=== PATIENT | female | born 1940 | race American Indian/Alaskan Native ===

== ENCOUNTER 2017-11-05 17:27 | Emergency (ER) | payer BC, MEDICARE ==
[2017-11-05 17:27] VITALS: BMI 29.7
[2017-11-05 17:39] VITALS: TEMP 98
--- NOTE | 2017-11-05 18:58 | ED PDOC ---
Arrival/HPI - General Chief Complaint: Lower Extremity Problem/Injury Time Seen by Provider: 11/05/17 18:40 Historian: Patient - History of Present Illness Narrative History of Present Illness (Text): 11/05/17 18:51 77yo female with PMHx of hypertension and Diabetes who present with complaint of b/l leg edema x 2weeks. Patient states she have had the edema for few weeks and it usually improve after elevating her legs up. States she noticed the right leg is not resolving, saw her PMD today and was referred to ED for US. She states she had a normal blood work last week. Denies pain to her b/l LE. Denies redness, warmth trauma, chest pain, SOB, diaphoresis, calf pain, nausea, vomiting, any other complaint. Past Medical History - Provider Review Nursing Documentation Reviewed: Yes - Cardiac Hx Cardiac Disorders: Yes Hx Hypertension: Yes - Pulmonary Hx Respiratory Disorders: No - Neurological Hx Neurological Disorder: No - Renal Hx Renal Disorder: No - Endocrine/Metabolic Hx Endocrine Disorders: Yes Hx Diabetes Mellitus Type 2: Yes - Hematological/Oncological Hx Blood Disorders: No - Integumentary Hx Dermatological Disorder: No - Musculoskeletal/Rheumatological Hx Musculoskeletal Disorders: Yes Hx Arthritis: Yes - Gastrointestinal Hx Gastrointestinal Disorders: No - Genitourinary/Gynecological Hx Genitourinary Disorders: Yes Other/Comment: ENDOMETRIOSIS - Psychiatric Hx Psychophysiologic Disorder: No Hx Substance Use: No - Surgical History Hx Hysterectomy: Yes - Anesthesia Hx Anesthesia Reactions: No Hx Malignant Hyperthermia: No - Suicidal Assessment Feels Threatened In Home Enviroment: No Family/Social History - Physician Review Nursing Documentation Reviewed: Yes Family/Social History: Unknown Family HX Smoking Status: Former Smoker Hx Alcohol Use: No Hx Substance Use: No Allergies/Home Meds Allergies/Adverse Reactions: Allergies No Known Allergies Allergy (Verified 11/05/17 17:31) Home Medications: Home Meds Medication Instructions Recorded Confirmed Felodipine [Plendil] 5 mg PO DAILY 08/01/16 11/05/17 Losartan/Hydrochlorothiazide 1 tab PO DAILY 08/01/16 11/05/17 [Hyzaar 100-25 Tablet] Nadolol [Corgard] 40 mg PO DAILY 08/01/16 11/05/17 Triamterene/Hydrochlorothiazid 35.5 mg PO DAILY 08/01/16 11/05/17 [Triamterene-Hctz 37.5-25 mg Cp] metFORMIN [glucOPHAGE] 500 mg PO BID 08/01/16 11/05/17 Review of Systems - Physician Review All systems were reviewed & negative as marked: Yes - Review of Systems Constitutional: Normal Eyes: Normal ENT: Normal Respiratory: Normal Cardiovascular: Edema. absent: Palpitations, Calf Pain, BUENROSTRO Gastrointestinal: Normal Genitourinary Female: Normal Musculoskeletal: Normal Skin: Normal Neurological: Normal Endocrine: Normal Hemo/Lymphatic: Normal Psychiatric: Normal Physical Exam Vital Signs Reviewed: Yes Vital Signs Temp Pulse Resp BP Pulse Ox 11/05/17 18:58 89 18 116/78 97 11/05/17 17:31 98.0 F 101 H 16 114/77 98 Temperature: Afebrile Blood Pressure: Normal Pulse: Regular Respiratory Rate: Normal Appearance: Positive for: Well-Appearing, Non-Toxic, Comfortable Pain Distress: None Mental Status: Positive for: Alert and Oriented X 3 - Systems Exam Head: Present: Atraumatic, Normocephalic Pupils: Present: PERRL Extroacular Muscles: Present: EOMI Conjunctiva: Present: Normal Mouth: Present: Moist Mucous Membranes Neck: Present: Normal Range of Motion Respiratory/Chest: Present: Clear to Auscultation, Good Air Exchange. No: Respiratory Distress, Accessory Muscle Use Cardiovascular: Present: Regular Rate and Rhythm, Normal S1, S2. No: Murmurs Abdomen: Present: Normal Bowel Sounds. No: Tenderness, Distention, Peritoneal Signs Back: Present: Normal Inspection Upper Extremity: Present: Normal Inspection. No: Cyanosis, Edema Lower Extremity: Present: Edema (3+ pitting edema on right leg and 2+ on the left), NORMAL PULSES. No: CALF TENDERNESS, Pushpa's Sign, Tenderness, Erythema, Temperature Abnormalties Neurological: Present: GCS=15, CN II-XII Intact, Speech Normal Skin: Present: Warm, Dry, Normal Color. No: Rashes Psychiatric: Present: Alert, Oriented x 3, Normal Insight, Normal Concentration Medical Decision Making ED Course and Treatment: 11/05/17 19:23 PT in ED for stated history. She declined lab work states she had a normal lab work last week. Per US tech prelimnary report was negative for US. Pt is ambulatory. She have no pain in ED. Pt was advised to wear compression stockings and keep leg elevated. Referred to her PMD - RAD Interpretation Radiology Orders: 11/05/17 18:45 DUPLEX LOWER EXTRM VEIN BILAT [US] Stat Disposition/Present on Arrival - Present on Arrival Any Indicators Present on Arrival: No History of DVT/PE: No History of Uncontrolled Diabetes: Yes Urinary Catheter: No History of Decub. Ulcer: No History Surgical Site Infection Following: None - Disposition Have Diagnosis and Disposition been Completed?: Yes Diagnosis: Edema Disposition: HOME/ ROUTINE Disposition Time: 19:30 Patient Plan: Discharge Condition: STABLE Discharge Instructions (ExitCare): Dependent Edema (DC) Additional Instructions: Follow up with your doctor Wear compression stockings and keep leg elevated Return to ED for any new or worsening symptoms Referrals: Eliazar Sterling MD [Primary Care Provider] - Follow up with primary Forms: [employer] (Maori)
[2017-11-05 19:49] VITALS: BP 117/87; PULSE 82; RESP 16; O2SAT 99
--- NOTE | 2017-11-06 09:57 | US ---
HISTORY: Leg pain and swelling. Evaluate for DVT PHYSICIAN(S): Kaiser Yung MD. TECHNIQUE: Duplex sonography and color-flow Doppler with graded compression were used to evaluate the deep venous systems of both lower extremities. The exam is somewhat limited by edema. FINDINGS: The visualized deep venous systems of both lower extremities are sonographically normal and compressible. Normal wave forms and augmentation are seen. There is no sonographic evidence for deep venous thrombosis in the visualized segments of both lower extremities. IMPRESSION: No sonographic evidence for deep venous thrombosis in the visualized segments of both lower extremities.
== END 2017-11-05 19:39 | disposition home or self-care (01) ==
LOC: ED 17:27
DX: R60.9 Edema, unspecified (principal); I10 Essential (primary) hypertension; Z87.891 Personal history of nicotine dependence

== ENCOUNTER 2018-10-22 11:24 | Outpatient (CLI) | payer MEDICARE | END 2018-10-22 11:25 | disposition home or self-care (01) | LOC: RAD 11:24 ==

== ENCOUNTER 2018-10-24 12:18 | Day surgery (SDC) | payer MEDICARE ==
[2018-10-24 12:59] LABS: BASO # 0.01 K/mm3 (0.0-2.0); BASO % 0.2 % (0.0-3.0); EOS % 0.4 % (1.5-5.0); HEMOGLOBIN 12.4 g/dL (12.0-16.0); LYMPH # 1.1 (1.2-3.4); LYMPH % 21.3 % (22.0-35.0); MEAN CELL VOLUME 93.7 fl (80.0-105.0); MEAN CORPUSCULAR HEMOGLOBIN 31.4 pg (25.0-35.0); MEAN CORPUSCULAR HGB CONC 33.5 g/dl (31.0-37.0); MEAN PLATELET VOLUME 8.4 fl (7.0-11.0); MONO # 0.4 (0.1-0.6); MONO % 8.2 % (1.0-6.0); RBC 3.95 10^6/uL (3.5-6.1); RED CELL DISTRIBUTION WIDTH 15.2 % (11.5-14.5); WHITE BLOOD COUNT 5.3 10^3/uL (4.5-11.0)
[2018-10-24 13:09] LABS: BLOOD UREA NITROGEN 19 mg/dL (7-21); CALCIUM 8.5 mg/dL (8.4-10.5); GFR NON-AFRICAN AMERICAN 54
[2018-10-24 13:11] LABS: INR 1.24
[2018-10-24 13:12] LABS: PARTIAL THROMBOPLASTIN TIME 29.4 Seconds (26.9-38.3)
[2018-10-24] MEDS ORDERED: Lidocaine 1% Inj (20ml) ONE (16:42)
[2018-10-24] MEDS ORDERED: Midazolam 2 MG/2 ML VIAL ONE (16:42)
[2018-10-24 16:47] VITALS: BMI 26.6
[2018-10-24] MEDS ORDERED: Midazolam 2 MG/2 ML VIAL IVP ONE (17:05)
[2018-10-24] MEDS ORDERED: Sodium Chloride 0.45% 1,000 ML IV SCH (17:15)
[2018-10-24] MEDS ORDERED: Oxycodone/Acetaminophen 5/325 mg Tab PO PRN (17:15)
[2018-10-24 17:40] VITALS: O2SAT 99
[2018-10-24 18:21] VITALS: PULSE 73; RESP 20; TEMP 97.6
[2018-10-24 18:44] VITALS: BP 105/63
--- NOTE | 2018-10-24 19:28 | CT ---
PROCEDURE: CT guided omental biopsy. HISTORY: Ovarian carcinoma. Needs omental biopsy for additional tumor evaluation. PHYSICIAN(S): Kaiser Yung MD. TECHNIQUE: The relative risks and indications of the procedure were explained to the patient and consent obtained. The patient was placed supine on the CT scanner and preliminary images through the upper abdomen obtained. Conscious sedation and monitoring were provided throughout the procedure by a nurse. A 4 cm omental mass is noted just below the spleen between the stomach and left colon. A left anterior approach was selected and the area prepped and draped in the usual sterile fashion. 1% Xylocaine was used to anesthetize the skin and soft tissues. A 17-gauge guiding needle was advanced into the 4 cm omental mass. Its position was confirmed with CT. Using coaxial technique, multiple core biopsies were obtained. The postprocedure images show no evidence of significant hemorrhage. IMPRESSION: 1. CT-guided omental biopsy as described above.
== END 2018-10-24 19:00 | disposition home or self-care (01) ==
LOC: SDS 12:18
PROVIDERS: ATTEND Radiology Vascular & Interventional Radiology
DX: C78.6 Secondary malignant neoplasm of retroperitoneum and peritoneum (principal); C56.9 Malignant neoplasm of unspecified ovary; E11.9 Type 2 diabetes mellitus without complications; I10 Essential (primary) hypertension
CPT/HCPCS: 36415; 49180; 77012; 80048; 85025; 85610; 85730; 88305; 99152; J2250; J2405; J3010; J7030

== ENCOUNTER 2018-11-08 17:47 | Emergency (ER) | payer MEDICARE ==
[2018-11-08 17:48] VITALS: BMI 26.6
--- NOTE | 2018-11-08 19:22 | ED PDOC ---
Arrival/HPI - General Chief Complaint: GI Problem Historian: Patient, Family - History of Present Illness Narrative History of Present Illness (Text): 11/08/18 19:12 78 year old female, whose past medical history includes hypertension, Diabetes, ascites, uterine cancer, presents to the emergency department accompanied by family for removal of ascites. The patient reports her last paracentesis was 3-4 weeks ago removing 3-4L done by Dr. Kaiser Yung. Patient reports she starts chemotherapy next week. She also reports she has not taken her lasix for the past week due to being unsure of her treatment regime. She reports shortness of breath, but denies any fever, chills, chest pain, nausea, vomiting, diarrhea, bladder fullness, urinary symptoms, back pain, neck pain, headache, dizziness, or any other complaints. PMD: Dr. Sterling Oncologist: Dr. Franco Symptom Onset: Gradual Symptom Course: Unchanged Activities at Onset: Light Context: Home Past Medical History - Provider Review Nursing Documentation Reviewed: Yes - Travel History Have you recently traveled outside [place] w/in the past 3 mons?: No - Cardiac Hx Pacemaker: No - Pulmonary Hx Respiratory Disorders: No - Neurological Hx Paralysis: No - Renal Hx Renal Disorder: No - Endocrine/Metabolic Hx Endocrine Disorders: Yes Hx Diabetes Mellitus Type 2: Yes - Hematological/Oncological Hx Blood Transfusions: No Hx Cancer: Yes (Endometrial cancer) - Integumentary Hx Dermatological Disorder: No - Musculoskeletal/Rheumatological Hx Musculoskeletal Disorders: Yes - Gastrointestinal Hx Gastrointestinal Disorders: No - Genitourinary/Gynecological Hx Genitourinary Disorders: Yes Other/Comment: ENDOMETRIOSIS - Psychiatric Hx Emotional Abuse: No Hx Physical Abuse: No Hx Substance Use: No - Surgical History Hx Hysterectomy: Yes - Anesthesia Hx Anesthesia Reactions: No Hx Malignant Hyperthermia: No - Suicidal Assessment Feels Threatened In Home Enviroment: No Family/Social History - Physician Review Nursing Documentation Reviewed: Yes Family/Social History: No Known Family HX Smoking Status: Former Smoker Hx Alcohol Use: No Hx Substance Use: No Allergies/Home Meds Allergies/Adverse Reactions: Allergies No Known Allergies Allergy (Verified 11/10/18 14:43) Home Medications: Home Meds Medication Instructions Recorded Confirmed Felodipine [Plendil] 5 mg PO DAILY 08/01/16 11/10/18 Losartan/Hydrochlorothiazide 1 tab PO DAILY 08/01/16 11/10/18 [Hyzaar 100-25 Tablet] Nadolol [Corgard] 40 mg PO DAILY 08/01/16 11/10/18 Triamterene/Hydrochlorothiazid 35.5 mg PO DAILY 08/01/16 11/10/18 [Triamterene-Hctz 37.5-25 mg Cp] metFORMIN [glucOPHAGE] 500 mg PO BID 08/01/16 11/10/18 Calcium Carbonate [Calcium] 500 mg PO DAILY 10/23/18 11/10/18 Magnesium [Magnesium Elemental] 30 mg PO DAILY 10/23/18 11/10/18 Mv-Min/Folic/Vit K/Lycop/Coq10 1 each PO DAILY 10/23/18 11/10/18 [Daily Multivitamin Capsule] [place]-3 Fatty Acids/Fish Oil 1 tab DAILY 10/23/18 11/10/18 [[place] 3 Fish Oil Softgel] Omeprazole Magnesium [Prilosec Otc] 20 mg PO DAILY 10/23/18 11/10/18 Vitamin B Complex [Vitamin B50 1 cap PO DAILY 10/23/18 11/10/18 Super Complex] Review of Systems - Physician Review All systems were reviewed & negative as marked: Yes - Review of Systems Constitutional: absent: Fevers, Other (chills) Respiratory: SOB Cardiovascular: absent: Chest Pain Gastrointestinal: Other (abdominal fluid ). absent: Diarrhea, Nausea, Vomiting Genitourinary Female: absent: Dysuria, Frequency, Hematuria Musculoskeletal: absent: Back Pain, Neck Pain Neurological: absent: Headache, Dizziness Physical Exam Vital Signs Reviewed: Yes Vital Signs Temp Pulse Resp BP Pulse Ox 11/08/18 18:11 97.4 F L 83 18 123/77 98 Temperature: Afebrile Blood Pressure: Normal Pulse: Regular Respiratory Rate: Normal Appearance: Positive for: Well-Appearing, Non-Toxic, Comfortable Pain Distress: None Mental Status: Positive for: Alert and Oriented X 3 - Systems Exam Mouth: Present: Dry Respiratory/Chest: Present: Decreased Breath Sounds (diminished breath sounds bi lterally ). No: Wheezes, Rales, Rhonchi Cardiovascular: Present: Regular Rate and Rhythm, Normal S1, S2. No: Murmurs Abdomen: Present: Distention, Other (Positive fluid shift, Ascites present. ) Lower Extremity: Present: Edema (+3 pitting edema bilaterally ) Neurological: Present: GCS=15, CN II-XII Intact, Speech Normal Psychiatric: Present: Alert, Oriented x 3, Normal Insight, Normal Concentration Medical Decision Making ED Course and Treatment: 11/08/18 19:28 Impression: 78 year old female presents for evaluation of abdominal fluid secondary to her ascites associated with shortness of breath. Differential Diagnosis included but are not limited to: -Ascites Plan: -- Labs --Lasix -- CXR -- IV Fluids -- Reassess and disposition Prior Visits: Notes and results from previous visits were reviewed. Progress Notes: 11/08/18 20:[address] Gerard(interventional radiology) who has not been responsive to calls. Patient understands she most likely will have to stay in the hospital and have paracentesis performed by IR in the morning. Labs pending. CXR shows cardiomegaly with vascular congestion 11/08/18 21:[address] Ferguson(covering for Dr. Sterling) who states patient most likely will not have procedure performed until Saturday. Shared decision making with patient and daughter with patient stating she would like to sign out AMA and return on Saturday. She understands she will have to undergo the entire triage process and dispositioning in the ED again and understands. Consent paperwork signed. She understands the risks of leaving prior to completion of medical treatment and displays sound judgment and insight into her condition. She is stable for discharge. - Lab Interpretations Lab Results: 11/08/18 19:45 11/08/18 19:45 Lab Results 11/08/18 19:45: Sodium 138, Potassium 3.6, Chloride 103, Carbon Dioxide 23, Anion Gap 16, BUN 33 H, Creatinine 1.2, Est GFR ( Amer) 53, Est GFR (Non- Af Amer) 44, Random Glucose 112 H, Calcium 8.8, Magnesium 1.3 L, Total Bilirubin 1.0, AST 28, ALT 7, Alkaline Phosphatase 60, NT-Pro-B Natriuret Pep 489 H, Total Protein 7.2, Albumin 3.5, Globulin 3.7, Albumin/Globulin Ratio 0.9 L 11/08/18 19:45: PT 15.0 H, INR 1.35, APTT 28.1 11/08/18 19:45: WBC 8.6 D, RBC 3.82, Hgb 11.8 L, Hct 35.5 L, MCV 92.9, MCH 30.9, MCHC 33.2, RDW 16.3 H, Plt Count 228, MPV 8.8, Neut % (Auto) 83.9 H, Lymph % (Auto) 8.9 L, [place] % (Auto) 7.2 H, Eos % (Auto) 0.0 L, Baso % (Auto) 0.0, Lymph # (Auto) 0.8 L, [place] # (Auto) 0.6, Eos # (Auto) 0.0, Baso # (Auto) 0.00, Absolute Neuts (auto) 7.20 H I have reviewed the lab results: Yes - RAD Interpretation Radiology Orders: 11/08/18 18:53 CHEST PORTABLE [RAD] Stat Washer Repairman: Radiologist - Medication Orders Current Medication Orders: 11/08/18 20:38 Sodium Chloride (Sodium Chloride 0.9%) 1,000 mls @ 100 mls/hr IV .Q10H RUTH Last Admin: 11/08/18 19:46 Dose: 100 mls/hr eMAR Start Stop Document 11/08/18 19:46 RD (Rec: 11/08/18 19:46 RD [id number]) Intravenous Solution Start Date 11/08/18 Start Time 19:46 - Scribe Statement The provider has reviewed the documentation as recorded by the Khadra Perales Provider Scribe Attestation: All medical record entries made by the Scribe were at my direction and personally dictated by me. I have reviewed the chart and agree that the record accurately reflects my personal performance of the history, physical exam, [facility] decision making, and the department course for this patient. I have also personally directed, reviewed, and agree with the discharge instructions and disposition. Disposition/Present on Arrival - Present on Arrival Any Indicators Present on Arrival: Yes History of DVT/PE: No History of Uncontrolled Diabetes: Yes Urinary Catheter: No History of Decub. Ulcer: No History Surgical Site Infection Following: None - Disposition Have Diagnosis and Disposition been Completed?: Yes Diagnosis: Dyspnea, Ascites Disposition: AGAINST MEDICAL ADVICE Disposition Time: 22:30 Condition: FAIR Referrals: Eliazar Sterling MD [Primary Care Provider] - Follow up with primary Forms: [employer] (Turkish)
[2018-11-08] MEDS ORDERED: Sodium Chloride 0.9% 1,000 ML IV SCH (19:30)
[2018-11-08 19:56] LABS: HEMOGLOBIN 11.8 g/dL (12.0-16.0); LYMPH # 0.8 (1.2-3.4); LYMPH % 8.9 % (22.0-35.0); MEAN CELL VOLUME 92.9 fl (80.0-105.0); MEAN CORPUSCULAR HEMOGLOBIN 30.9 pg (25.0-35.0); MEAN CORPUSCULAR HGB CONC 33.2 g/dl (31.0-37.0); MEAN PLATELET VOLUME 8.8 fl (7.0-11.0); MONO # 0.6 (0.1-0.6); MONO % 7.2 % (1.0-6.0); RBC 3.82 10^6/uL (3.5-6.1); RED CELL DISTRIBUTION WIDTH 16.3 % (11.5-14.5); WHITE BLOOD COUNT 8.6 10^3/uL (4.5-11.0)
[2018-11-08 20:05] LABS: INR 1.35; PARTIAL THROMBOPLASTIN TIME 28.1 Seconds (26.9-38.3)
[2018-11-08 20:06] LABS: ALB/GLOB RATIO 0.9 (1.1-1.8); ALBUMIN 3.5 g/dL (3.0-4.8); CALCIUM 8.8 mg/dL (8.4-10.5)
[2018-11-08 20:16] VITALS: TEMP 97.6
[2018-11-08 22:41] VITALS: BP 121/63; PULSE 79; RESP 17; O2SAT 97
--- NOTE | 2018-11-09 10:54 | RAD ---
HISTORY: sob COMPARISON: None available. TECHNIQUE: Chest, one view. FINDINGS: Right IJ approach central venous catheter extends the cavoatrial junction. Borderline cardiomegaly. Enlargement of the mediastinum may be related to ectatic aorta exaggerated by patient obliquity. Adenopathy is not excluded. Hypoinflation. Small right greater than left pleural effusions. Right lower lobe atelectasis/infiltrate. No definite pneumothorax. Please note that chest x-ray has limited sensitivity for the detection of pulmonary masses. Degenerative changes of the spine. Acromioclavicular arthropathy. IMPRESSION: Right IJ approach central venous catheter extends the cavoatrial junction. Borderline cardiomegaly. Enlargement of the mediastinum may be related to ectatic aorta exaggerated by patient obliquity. Adenopathy is not excluded. Hypoinflation. Small right greater than left pleural effusions. Right lower lobe atelectasis/infiltrate.
--- NOTE | 2018-11-09 16:37 | CARD ---
APPROVED REPORT Date of service: 11/08/2018 EKG Measurement Heart [id number] <Conclusion> Normal sinus rhythm Nonspecific T wave abnormality Abnormal ECG
== END 2018-11-08 22:30 | disposition left against medical advice (07) ==
LOC: ED 17:47
DX: R06.00 Dyspnea, unspecified (principal); R18.8 Other ascites; I10 Essential (primary) hypertension; E11.9 Type 2 diabetes mellitus without complications; Z85.42 Personal history of malignant neoplasm of other parts of uterus; Z87.891 Personal history of nicotine dependence
CPT/HCPCS: 71045; 80053; 83735; 83880; 85025; 85610; 85730; 93005; 96374; 96375; 99284; J1940; J2405; J7030

== ENCOUNTER 2018-11-10 09:47 | Inpatient (IN) | payer MEDICARE ==
[2018-11-10 09:54] VITALS: BMI 27.1
--- NOTE | 2018-11-10 10:30 | ED PDOC ---
Arrival/HPI - General Chief Complaint: Shortness Of Breath Time Seen by Provider: 11/10/18 09:57 Historian: Patient - History of Present Illness Narrative History of Present Illness (Text): 11/10/18 10:26 78 year old female, with past medical history of diabetes, hypertension and endometrial CA w/ ascites, presents to the ED for evaluation of worsening shortness of breath today. Patient reports recent visit to the ED on 11/08/18 for scheduled ascites drainage however signed out AMA after being informed that abdominal tap will be performed today. Patient now presents to the Emergency department for ascites drainage and complains of worsening shortness of breath. Patient denies any other associated somatic complaints. Patient denies any fever, chills, nausea, vomiting, cough, diaphoresis, abdominal pain or any other complaints. PMD: Dr. Sterling Time/Duration: < week Symptom Onset: Gradual Symptom Course: Unchanged Activities at Onset: Light Context: Home Past Medical History - Provider Review Nursing Documentation Reviewed: Yes - Reproductive Menopause: Yes - Cardiac Hx Cardiac Disorders: Yes Hx Hypertension: Yes Hx Pacemaker: No - Pulmonary Hx Respiratory Disorders: No - Neurological Hx Paralysis: No - Renal Hx Renal Disorder: No - Endocrine/Metabolic Hx Endocrine Disorders: Yes Hx Diabetes Mellitus Type 2: Yes - Hematological/Oncological Hx Blood Transfusions: No Hx Cancer: Yes (Endometrial cancer) - Integumentary Hx Dermatological Disorder: No - Musculoskeletal/Rheumatological Hx Musculoskeletal Disorders: Yes - Gastrointestinal Hx Gastrointestinal Disorders: No - Genitourinary/Gynecological Hx Genitourinary Disorders: Yes Other/Comment: ENDOMETRIOSIS - Psychiatric Hx Emotional Abuse: No Hx Physical Abuse: No Hx Substance Use: No - Surgical History Hx Hysterectomy: Yes - Anesthesia Hx Anesthesia: Yes Hx Anesthesia Reactions: No Hx Malignant Hyperthermia: No - Suicidal Assessment Feels Threatened In Home Enviroment: No Family/Social History - Physician Review Nursing Documentation Reviewed: Yes Family/Social History: Unknown Family HX Smoking Status: Former Smoker Hx Alcohol Use: No Hx Substance Use: No Allergies/Home Meds Allergies/Adverse Reactions: Allergies No Known Allergies Allergy (Verified 11/10/18 10:09) Home Medications: Home Meds Medication Instructions Recorded Confirmed Felodipine [Plendil] 5 mg PO DAILY 08/01/16 10/24/18 Losartan/Hydrochlorothiazide 1 tab PO DAILY 08/01/16 10/24/18 [Hyzaar 100-25 Tablet] Nadolol [Corgard] 40 mg PO DAILY 08/01/16 10/24/18 Triamterene/Hydrochlorothiazid 35.5 mg PO DAILY 08/01/16 10/24/18 [Triamterene-Hctz 37.5-25 mg Cp] metFORMIN [glucOPHAGE] 500 mg PO BID 08/01/16 10/24/18 Calcium Carbonate [Calcium] 500 mg PO DAILY 10/23/18 10/24/18 Magnesium [Magnesium Elemental] 30 mg PO DAILY 10/23/18 10/24/18 Mv-Min/Folic/Vit K/Lycop/Coq10 1 each PO DAILY 10/23/18 10/24/18 [Daily Multivitamin Capsule] [place]-3 Fatty Acids/Fish Oil 1 tab DAILY 10/23/18 10/24/18 [[place] 3 Fish Oil Softgel] Omeprazole Magnesium [Prilosec Otc] 20 mg PO DAILY 10/23/18 10/24/18 Phytonadione [Vitamin K Tab] 5 mg PO DAILY 10/23/18 10/24/18 Vitamin B Complex [Vitamin B50 1 cap PO DAILY 10/23/18 10/24/18 Super Complex] Review of Systems - Physician Review All systems were reviewed & negative as marked: Yes - Review of Systems Constitutional: absent: Fevers, Night Sweats Respiratory: SOB. absent: Cough Cardiovascular: absent: Chest Pain Gastrointestinal: absent: Abdominal Pain, Nausea, Vomiting Neurological: absent: Headache, Dizziness Endocrine: absent: Diaphoresis Physical Exam Vital Signs Reviewed: Yes Vital Signs Temp Pulse Resp BP Pulse Ox 11/10/18 09:54 97.2 F L 89 22 118/76 94 L Temperature: Afebrile Blood Pressure: Normal Pulse: Regular Respiratory Rate: Normal Appearance: Positive for: Well-Appearing, Non-Toxic, Comfortable Pain Distress: None Mental Status: Positive for: Alert and Oriented X 3 - Systems Exam Head: Present: Atraumatic, Normocephalic Pupils: Present: PERRL Extroacular Muscles: Present: EOMI Conjunctiva: Present: Normal Respiratory/Chest: Present: Clear to Auscultation, Good Air Exchange, Decreased Breath Sounds (diminished lung sounds bilaterally). No: Respiratory Distress, Accessory Muscle Use Cardiovascular: Present: Regular Rate and Rhythm, Normal S1, S2. No: Murmurs Abdomen: Present: Distention (Not tense). No: Tenderness, Peritoneal Signs Upper Extremity: Present: Normal Inspection. No: Cyanosis, Edema Lower Extremity: Present: Edema (+1 pitting edema bilaterally) Neurological: Present: GCS=15, CN II-XII Intact, Speech Normal Skin: Present: Warm, Dry, Normal Color. No: Rashes Psychiatric: Present: Alert, Oriented x 3, Normal Insight, Normal Concentration Medical Decision Making ED Course and Treatment: 11/10/18 10:32 Impression: 78 year old female presents to the Emergency department for evaluation of worsening shortness of breath. Plan: -- VBG -- EKG -- Labs -- Chest X-ray -- Reassess and disposition Prior Visits: Notes and results from previous visits were reviewed. Progress Notes: 11/10/18 11:20 Chest X-ray, reviewed by radiologist, shows minimal infiltrate and effusion right lower lobe. 11/10/18 12:36 Dr Ferguson is here. 11/10/18 12:[address] Prisca Yung to call back. 11/10/18 14:[address] Yung who will put her on the schedule for paracentesis - RAD Interpretation Radiology Orders: 11/10/18 10:08 CHEST PORTABLE [RAD] Stat - Scribe Statement The provider has reviewed the documentation as recorded by the Scribe To Avelar. All medical record entries made by the Scribe were at my direction and personally dictated by me. I have reviewed the chart and agree that the record accurately reflects my personal performance of the history, physical exam, medical decision making, and the department course for this patient. I have also personally directed, reviewed, and agree with the discharge instructions and disposition. Disposition/Present on Arrival - Present on Arrival Any Indicators Present on Arrival: No History of DVT/PE: No History of Uncontrolled Diabetes: Yes Urinary Catheter: No History of Decub. Ulcer: No History Surgical Site Infection Following: None - Disposition Have Diagnosis and Disposition been Completed?: Yes Diagnosis: Pneumonia, Hypokalemia, Dyspnea, Ascites Disposition: HOSPITALIZED Disposition Time: 12:37 Patient Plan: Admission Patient Problems: Current Active Problems Problem Status Onset Ascites Acute Dyspnea Acute Hypokalemia Acute Pneumonia Acute Condition: FAIR
[2018-11-10 10:35] LABS: BASO # 0.01 {null, K/mm3} (0.0-2.0); BASO % 0.1 % (0.0-3.0); EOS % 0.1 % (1.5-5.0); HEMOGLOBIN 11.4 g/dL (12.0-16.0); LYMPH # 0.8 (1.2-3.4); LYMPH % 8.5 % (22.0-35.0); MEAN CELL VOLUME 92.7 fl (80.0-105.0); MEAN CORPUSCULAR HEMOGLOBIN 30.7 pg (25.0-35.0); MEAN CORPUSCULAR HGB CONC 33.1 g/dl (31.0-37.0); MEAN PLATELET VOLUME 9.8 fl (7.0-11.0); MONO # 0.9 (0.1-0.6); MONO % 9.4 % (1.0-6.0); RBC 3.71 {null, 10^6/uL} (3.5-6.1); RED CELL DISTRIBUTION WIDTH 16.5 % (11.5-14.5); WHITE BLOOD COUNT 9.8 {null, 10^3/uL} (4.5-11.0)
[2018-11-10 10:45] LABS: INR 1.34; PARTIAL THROMBOPLASTIN TIME 27.7 Seconds (26.9-38.3); PROTHROMBIN TIME 15.1 SECONDS (9.4-12.5); VENOUS BLOOD GAS BASE EXCESS 0.7 mmol/L (0.0-2.0); VENOUS BLOOD GAS PO2 43 mm/Hg (30-55); VENOUS BLOOD PH 7.41 (7.32-7.43)
--- NOTE | 2018-11-10 11:01 | RAD ---
Date of service: 11/10/2018 HISTORY: sob COMPARISON: 11/08/2018 FINDINGS: LUNGS: Minimal infiltrate and effusion right lower lobe PLEURA: Minimal effusion CARDIOVASCULAR: No aortic atherosclerotic calcification present. Normal cardiac size. No pulmonary vascular congestion. OSSEOUS STRUCTURES: No significant abnormalities. VISUALIZED UPPER ABDOMEN: Normal. OTHER FINDINGS: None. IMPRESSION: Minimal infiltrate and effusion right lower lobe
[2018-11-10 11:09] LABS: BLOOD UREA NITROGEN 34 mg/dL (7-21); GFR NON-AFRICAN AMERICAN 44
[2018-11-10 11:10] LABS: ALB/GLOB RATIO 0.9 (1.1-1.8); ALT/SGPT < 6 U/L (7-56); AST/SGOT 22 U/L (14-36); CALCIUM 8.3 mg/dL (8.4-10.5)
[2018-11-10 11:15] LABS: B-TYPE NATRIURETIC PEPTIDE 1070 pg/mL (0-450); TROPONIN I 0.11 ng/mL
[2018-11-10] MEDS: Potassium Chloride 20 mEq ER Tab PO STA ×2 (11:40→11:54)
[2018-11-10] MEDS: Potassium Chloride 40 mEq/30 ml LIQ UD PO STA ×2 (12:06→14:34)
[2018-11-10] MEDS ORDERED: cefTRIAXone 1 gm 1 GM/100 ML BAG IVPB STA (12:29)
[2018-11-10] MEDS ORDERED: Azithromycin 500MG/NS 250ml 500 MG/250 ML BAG IVPB STA (12:29)
--- NOTE | 2018-11-10 15:29 | CARD ---
APPROVED REPORT Date of service: 11/10/2018 EKG Measurement Heart [id number] [id number] <Conclusion> Normal sinus rhythm Baseline artifact precludes rhythm assessment Otherwise normal ECG
[2018-11-10] MEDS ORDERED: Pneumococcal 23-Valent Vaccine IM ONE (17:54)
[2018-11-10] MEDS ORDERED: Influenza Vaccine 60 mcg/0.5 mL SYR (4YR UP) IM ONE (17:54)
[2018-11-10] MEDS ORDERED: Albuterol-Ipratrop 3 mg / 0.5 (3 ml) UD IH PRN (19:02)
[2018-11-10 21:16] VITALS: BP 97/63; RESP 20; TEMP 98.2; O2SAT 97
--- NOTE | 2018-11-10 21:16 | HP ---
DATE OF EXAM: <> HISTORY OF PRESENT ILLNESS: The patient is 78 years old, came to emergency room because of worsening abdominal distension. The patient was here on 11/08/2018, she wanted to have a paracentesis done on 11/08/2018, but since it was weekend that was not doable, so she signed against medical advice and she came back for the same procedure. Complaint of scant cough with complaint of difficulty breathing. Complaint of abdominal discomfort. Denies any nausea, vomiting. Does have a decrease of appetite. PAST MEDICAL HISTORY: 1. Significant for noninsulin-dependent diabetes. 2. Hypertension. 3. History of endometrial CA with ascites. 4. Bilateral knee osteoarthritis. 5. History of uterine CA status post hysterectomy followed by radiation and chemotherapy. 6. Anxiety disorder. 7. History of gastritis status post endoscopy. ALLERGIES: SHE IS NOT ALLERGIC TO ANY MEDICATIONS. MEDICATIONS AT HOME: She is on metformin 500 mg twice a day, Triamterene, omeprazole, Nadolol, magnesium, losartan, Plendil, and calcium. SOCIAL HISTORY: She used to be a smoker in the remote past. She used to drink socially. PHYSICAL EXAMINATION GENERAL: She looks uncomfortable. VITAL SIGNS: She is afebrile, pulse 89, respirations 22, blood pressure 119/76. LUNGS: Bilateral decreased breath sounds at bases. HEART: S1, S2 audible. ABDOMEN: Soft but distended. Had fluid thrill. LABORATORY DATA: WBC is 9.8, hemoglobin 11.4, hematocrit 34, platelet 242. PT 15.1, INR 1.34. Chemistry; sodium 140, potassium 2.8, chloride 105, CO2 of 24, BUN 34, creatinine 1.2, blood sugar 113, magnesium 1.2. LFTs are within normal limits. LDH is 865. BNP 1070. ASSESSMENT: 1. Right lower lobe infiltrate. 2. Malignant ascites. 3. History of uterine cancer status post hysterectomy, radiation and chemotherapy. 4. Noninsulin-dependent diabetes. 5. History of hypertension. PLAN: We will start the patient on Nadolol. We will start her on losartan and start her on nebulizer treatment. Metformin 500 mg twice a day. Maxipime 1 g every 12 hours. She was given Zithromax and Rocephin. Follow up her electrolytes in a.m. She will be scheduled for paracentesis in a.m. Braeden Ferguson MD [facility] # [id number]
[2018-11-10] MEDS ORDERED: Cefepime 1gm in NS 100ml 1 GM/100 ML BAG IVPB SCH (22:00)
--- NOTE | 2018-11-10 23:09 | CP.PCM.PN ---
<Gallito Wise - Last Filed: 11/10/18 23:09> Subjective - Date & Time of Evaluation Date of Evaluation: 11/10/18 Time of Evaluation: 23:08 - Subjective Subjective: PGY1 House Doctor: - Patient complained of inability to fall asleep, requesting xanax because she states that this is what she takes at home. 1-time dose of Benadryl 25mg PO ordered. Will reassess if this does not work. Objective - Vital Signs/Intake and Output Vital Signs (last 24 hours): Temp Pulse Resp BP Pulse Ox 98.2 F 72 20 97/63 L 97 11/10/18 21:15 11/10/18 21:15 11/10/18 21:15 11/10/18 21:15 11/10/18 21:15 - Medications Medications: Current Medications Albuterol/Ipratropium (Duoneb 3 Mg/0.5 Mg (3 Ml) Ud) 3 ml IH Q2H PRN PRN Reason: Shortness of Breath Albuterol/Ipratropium (Duoneb 3 Mg/0.5 Mg (3 Ml) Ud) 3 ml IH [id number] RUTH Hydrochlorothiazide (Hydrodiuril) 25 mg PO DAILY RUTH Cefepime HCl (Maxipime 1gm) 1 gm in 100 mls @ 100 mls/hr IVPB Q12 RUTH; Protocol Last Admin: 11/10/18 22:36 Dose: 100 mls/hr Losartan Potassium (Cozaar) 100 mg PO DAILY RUTH Metformin HCl (Glucophage) 500 mg PO BID RUTH Nadolol (Corgard) 40 mg PO DAILY RUTH - Labs Labs: 11/10/18 10:15 11/10/18 10:15 PT 15.1 SECONDS (9.4-12.5) H 11/10/18 10:15 INR 1.34 11/10/18 10:15 APTT 27.7 Seconds (26.9-38.3) 11/10/18 10:15 <Rebeka Mayorga - Last Filed: 11/11/18 06:47> Objective - Vital Signs/Intake and Output Vital Signs (last 24 hours): Temp Pulse Resp BP Pulse Ox 98.2 F 70 20 97/63 L 97 11/10/18 21:15 11/11/18 01:23 11/10/18 21:15 11/10/18 21:15 11/10/18 21:15 - Medications Medications: Current Medications Albuterol/Ipratropium (Duoneb 3 Mg/0.5 Mg (3 Ml) Ud) 3 ml IH Q2H PRN PRN Reason: Shortness of Breath Last Admin: 11/11/18 06:07 Dose: 3 ml Albuterol/Ipratropium (Duoneb 3 Mg/0.5 Mg (3 Ml) Ud) 3 ml IH [id number] RUTH Last Admin: 11/11/18 01:20 Dose: 3 ml Hydrochlorothiazide (Hydrodiuril) 25 mg PO DAILY RUTH Cefepime HCl (Maxipime 1gm) 1 gm in 100 mls @ 100 mls/hr IVPB Q12 RUTH; Protocol Last Admin: 11/10/18 22:36 Dose: 100 mls/hr Losartan Potassium (Cozaar) 100 mg PO DAILY RUTH Metformin HCl (Glucophage) 500 mg PO BID RUTH Nadolol (Corgard) 40 mg PO DAILY RUTH - Labs Labs: 11/10/18 10:15 11/10/18 10:15 PT 15.1 SECONDS (9.4-12.5) H 11/10/18 10:15 INR 1.34 11/10/18 10:15 APTT 27.7 Seconds (26.9-38.3) 11/10/18 10:15 Attending/Attestation - Attestation I have personally seen and examined this patient.: No I have fully participated in the care of the patient.: No I have reviewed all pertinent clinical information, including history, physical exam and plan: No
[2018-11-10] MEDS: Albuterol-Ipratrop 3 mg / 0.5 (3 ml) UD IH SCH (23:32)
[2018-11-11] MEDS: Albuterol-Ipratrop 3 mg / 0.5 (3 ml) UD IH SCH ×2 (01:20→09:13)
[2018-11-11 01:24] VITALS: PULSE 70
[2018-11-11 07:04] LABS: HEMOGLOBIN 10.6 g/dL (12.0-16.0); LYMPH # 0.8 (1.2-3.4); LYMPH % 9.9 % (22.0-35.0); MEAN CELL VOLUME 92.6 fl (80.0-105.0); MEAN CORPUSCULAR HGB CONC 32.4 g/dl (31.0-37.0); MEAN PLATELET VOLUME 9.9 fl (7.0-11.0); MONO # 0.9 (0.1-0.6); MONO % 10.5 % (1.0-6.0); RBC 3.53 {null, 10^6/uL} (3.5-6.1); RED CELL DISTRIBUTION WIDTH 16.5 % (11.5-14.5); WHITE BLOOD COUNT 8.1 {null, 10^3/uL} (4.5-11.0)
[2018-11-11 07:17] LABS: ALB/GLOB RATIO 0.8 (1.1-1.8); ALBUMIN 3.1 g/dL (3.0-4.8); CALCIUM 8.5 mg/dL (8.4-10.5)
[2018-11-11 07:44] LABS: TROPONIN I 0.34 ng/mL
[2018-11-11] MEDS ORDERED: Heparin25000 units/250ml 1/2NS 25,000 UNITS/250 ML BAG IV SCH ×2 (08:00)
[2018-11-11] MEDS ORDERED: NOREPINEPHRINE BIT/0.9 % NACL 4 MG/250 ML BAG IV PRN (08:09)
[2018-11-11] MEDS ORDERED: Albumin Human 25% (12.5 gm/50 ml) IV ONE ×2 (08:20→08:21)
[2018-11-11] MEDS ORDERED: EPINEPHrine- 1 MG in Sodium Chloride 0.9% 50 ML IV PRN (08:26)
[2018-11-11] MEDS ORDERED: Sodium Bicarbonate (8.4%) 50 Meq Syringe IVP ONE (08:27)
--- NOTE | 2018-11-11 08:42 | RAD ---
Date of service: 11/11/2018 HISTORY: Shortness of breath COMPARISON: 11/10/2018 FINDINGS: LUNGS: Ill-defined opacity lower right hemithorax. Possible pneumonia. Follow-up advised. PLEURA: Small right pleural effusion. No left pleural effusion. No pneumothorax. CARDIOVASCULAR: There is atherosclerotic calcification of the thoracic aortic arch. Normal cardiac size. New ET tube positioned with its tip approximately 3.0 cm above the tracheal payal. Right IJ central venous infusion port unchanged. OSSEOUS STRUCTURES: No significant abnormalities. VISUALIZED UPPER ABDOMEN: Normal. OTHER FINDINGS: None. IMPRESSION: Small right pleural effusion. Ill-defined opacity at right base. Possible pneumonia. Follow-up advised. New ET tube appropriately positioned.
[2018-11-11 08:48] LABS: ARTERIAL BLOOD GAS O2 SAT 16.9 % (95-98); ARTERIAL BLOOD GAS PCO2 73 mm/Hg (35-45); ARTERIAL BLOOD GAS TCO2 20.2 mmol.L (22-28)
[2018-11-11 08:53] LABS: BASO # 0.03 {null, K/mm3} (0.0-2.0); BASO % 0.4 % (0.0-3.0); EOS % 0.1 % (1.5-5.0); LYMPH # 3.7 (1.2-3.4); LYMPH % 53.1 % (22.0-35.0); MEAN CELL VOLUME 96.2 fl (80.0-105.0); MEAN CORPUSCULAR HEMOGLOBIN 30.8 pg (25.0-35.0); MEAN PLATELET VOLUME 9.3 fl (7.0-11.0); MONO # 0.3 (0.1-0.6); MONO % 4.4 % (1.0-6.0); RBC 2.37 {null, 10^6/uL} (3.5-6.1); RED CELL DISTRIBUTION WIDTH 16.6 % (11.5-14.5); WHITE BLOOD COUNT 6.9 {null, 10^3/uL} (4.5-11.0)
[2018-11-11 09:12] LABS: HEMOGLOBIN 7.3 g/dL (12.0-16.0)
[2018-11-11 09:17] LABS: ALB/GLOB RATIO 0.9 (1.1-1.8); ALBUMIN 1.8 g/dL (3.0-4.8); CALCIUM 7.9 mg/dL (8.4-10.5); TROPONIN I 0.44 ng/mL
--- NOTE | 2018-11-11 09:28 | PCM.RRT ---
SUPPLY COORDINATOR Nurse Assessment - Situation Date: 11/11/18 Time SUPPLY COORDINATOR was called: 06:58 SUPPLY COORDINATOR Responder Arrival Time: 07:00 SUPPLY COORDINATOR Location:: [address] [place] [address] Room Number: [id number] SUPPLY COORDINATOR Reason for Call: O2 Saturation below 90%, Change in Mental Status SUPPLY COORDINATOR Called By: RN - IV IV Inserted during SUPPLY COORDINATOR?: No IV Fluids Initiated During SUPPLY COORDINATOR?: Yes. 2 liters 0.9 Pushed - Respiratory Oxygen Delivery Method: Non Rebreather @% Oxygen Flow Rate: 100 Received Nebulizer Treatments:: Yes Was the Patient Ventilated with Bag/Mask 100% O2?: Yes Secretions Suctioned?: No Was the Patient Intubated?: No Was the Patient Placed on a Ventilator?: No - Medication Medications Administered During SUPPLY COORDINATOR: Epi 7:01. Mag 1GM 7:03. Epi 7:05. 1 AMP Robles Chloride 7:07 - Diagnostic Test Ordered EKG: Yes Chest X-Ray: No - Stat Labs Ordered SUPPLY COORDINATOR Stat Labs Ordered: CBC, BMP, TROPONIN, ABG CPR started during SUPPLY COORDINATOR?: Yes - Vital Signs Vital Sign: Rapid Response Vital Sign Pulse Rate 10 Respiratory Rate 4 Temperature 99.2 F Oxygen Saturation 84 - Finger Stick Blood Glucose Finger Stick Blood Glucose: 130 - Time SUPPLY COORDINATOR Ended Time SUPPLY COORDINATOR Ended: 07:23 - Vital Signs at end of SUPPLY COORDINATOR Vital Signs at end of SUPPLY COORDINATOR: Rapid Response End Vital Sign Blood Pressure 93/58 Pulse Rate 156 Respiratory Rate 20 O2 Sat by Pulse Oximetry 92 - Recommendations Notifications: Attending Physician, Family or Designated Caregiver I.Reason for SUPPLY COORDINATOR - A) Acute Change in Patient: Subjective: HEMA MELO NOTE Patient is a 78 year old female with past medical history of HTN, DM, Ovarian Ca ncer who was witnessed to have difficulty breathing which progressed into agonal breathing. Patient was evaluated and found to not have a pulse. ACLS protocol was initiated and Hema melo was called at 7:01AM. Patient underwent 2 rounds of compressions, was given 2 dose of epinephrine, 1 gram of magnesium sulfate and calcium chloride. Patient was intubated during course of code with successful placement verified via chest xray. Patient had return of spontaneous circulation and was found to have sinus tachycardia. Patient was stabilized for transfer to ICU. EKG was performed showing limited ST elevations in inferior and anterior septal leads. Floor Covering Installer tax professional for [facility] was contacted and notified of findings. Patient's primary physician and family were also notified. While in ICU patient was evaluated by Dr. Rodriguez who placed patient on Heparin gtt for potential STEMI. Patient BP continued to be hypotesnive and unstable, patient was placed on IV epinephrine for BP control. She continued to have unstable rhythm. Patient subsequently coded while in ICU multiple times (x4) throughout the morning. ROSC was able to be achieved with each ACLS session. Family was notified and arrived at hospital for continual updates. - Respiratory Oxygen Delivery Method: Intubated Oxygen Flow Rate: 100 - Constitutional Appears: Toxic - Head Head Exam: ATRAUMATIC, NORMOCEPHALIC - Respiratory Exam Respiratory Exam: Rhonchi Additional comments: Patient intubated - Cardiovascular Exam Cardiovascular Exam: Tachycardia - GI/Abdominal Exam GI & Abdominal Exam: Distended - Neurological Exam Neurological Exam: absent: Alert, Awake, Oriented x3 - Extremities Exam Extremities Exam: Pedal Edema (bilaterally) Plan - Assessment of Findings&Treatment Plan Cardiac arrest -ACLS protocol conducted -Return of ROSC, transfer to ICU for further management and care Acute Respiratory Failure - Patient unable to maintain airwa - Intubated and placed on ventilator - CXR for confirmation - Notify Respiratory therapist ST elevations on EKG -Cardiology tax professional notfied, Dr. Rodriguez -Heparin gtt started Primary care notified Family notified, patient continues to be full code at this time
--- NOTE | 2018-11-11 09:50 | CP.PCM.PRO ---
Pronouncement of Note - Clinical Findings Physical Exam: No Response Verbal/Painful Stimuli, Absent Peripheral Puls es{Carotid & Femoral}, Absent Heart & Breath Sounds, No Pupillary Light Reflex, No Corneal Reflex, Pupils Fixed & Dilated, Absence of Vital Signs - Pronouncement Time Time of Pronouncement of : 09:35 - Notifications Pronouncement Notifications: Family Notified, Atending Notified Relief Worker Notified: Yes - Autopsy Autopsy Requested: No - [place] [id number]
--- NOTE | 2018-11-11 10:38 | CARD ---
APPROVED REPORT Date of service: 11/11/2018 EKG Measurement Heart [id number] <Conclusion> Supraventricular tachycardia Low voltage QRS Subtle ST elevation in inferior leads, consider inferior injury Abnormal ECG
--- NOTE | 2018-11-11 12:20 | CARD ---
APPROVED REPORT Date of service: 11/11/2018 EXAM: Two-dimensional and M-mode echocardiogram with Doppler and color Doppler. INDICATION POST CODE <Conclusion> This is a Stat Study at bed Side S/p Code Blue Echo was done Just after first code and then completed after second Code. Normal LV Size with LVH, and preserved Lv FX. normal size LA Severely dilated RV with RV hypokinesis Dilated RA Aortic sclerosis Vs mild Mitral anular calcification with trace MR Trace to mild PI severe TR No pericardial effusion .
--- NOTE | 2018-11-11 13:15 | PCM.PROC ---
<Kush Schmitt - Last Filed: 11/11/18 13:12> Procedures Attestation:: I certify that I have explained the specified Operation(s) or Procedure(s), risks, benefits and reasonable alternatives to the Patient and/or other person responsible. The opportunity was given to ask questions and all questions answered - Intubation Time Out Performed: Yes Sedative: None Laryngoscope: Bulmaro (3) ET Tube Size: 7.5 ET Tube Secured at Depth: 23 ET Tube Secured Locarion: Teeth ET Tube Placement Confirmation: Visualized Passing Through Cords, Breath Sounds Equal Bilaterally, No Breath Sounds Over Epigastrum, Confirmation w/Capnometry Patient Tolerated Procedure: No Complications Procedure Immediate Complications: None Additional comments: Supervised by Dr. Tierra MD. Placement confirmed with chest xray. <Rebeka Mayorga - Last Filed: 11/11/18 19:18> Attending/Attestation - Attestation I have personally seen and examined this patient.: Yes I have fully participated in the care of the patient.: No I have reviewed all pertinent clinical information, including history, physical exam and plan: No
--- NOTE | 2018-11-11 15:13 | CON ---
DATE: 11/11/2018 REASON FOR CONSULTATION: ST-elevation evaluation for code STEMI. BRIEF CLINICAL HISTORY: This is a 78-year-old female with past medical history significant for diabetes, hypertension, endometrial CA with ascites, word of mouth also by the nurse who is taking care said possible pancreatic CA with metastasis questionable as per night nurse, who was on the floor, initially admitted with shortness of breath, who was here and was scheduled for abdominal tap, but the patient signed out and readmitted yesterday under Dr. Ferguson's service with complaint of shortness of breath. This morning, the patient was found to be very short of breath, code blue was activated and during the EKG found to be ST elevation in II, III, aVF half a millimeter to 1 millimeter and after 2 runs of , pulse got back and the patient was moved to ICU and I was called for evaluation for code STEMI. The patient never complained of chest pain, but complained of shortness of breath since admission and distention of abdomen, possibly secondary to ascites. PAST MEDICAL HISTORY: Past history significant for questionable history of pancreatic CA as per the night nurse, history of endometrial CA with ascites, bilateral osteoarthritis, history of uterine status post hysterectomy followed by radiation in chemotherapy. Previous chart reviewed that says most likely the patient has ovarian CA with metastasis, probably the pancreatic CA is not correct word of mouth. Currently, the patient is in the ICU. CURRENT MEDICATION: The patient at home was taking Glucophage, vitamin B complex, triamterene/hydrochlorothiazide combination 37.5/25, omeprazole, fish oil, (nadolol) Corgard 40 mg daily, Plendil and calcium carbonate. ALLERGIES: NO KNOWN DRUG ALLERGIES. REVIEW OF SYSTEMS: As per HPI. PHYSICAL EXAMINATION: GENERAL: Height of the patient 5 feet 7 inches. Weight of the patient 173 pounds. Body mass index 27.2 kg/m2. VITAL SIGNS: Heart rate 40, blood pressure 90/58. The patient is in the ICU, intubated. HEENT: Pupils are dilated, but reacting to the light. HEART: S1 and S2, regular. Bradycardia. CHEST: Good air entry. ABDOMEN: Tense, distended and ascites noted. EXTREMITIES: 3+ pedal edema bilaterally noted. LABORATORY DATA: Blood work WBC 8.1, hemoglobin 10.6, hematocrit 32.7 and platelet count 209. Chemistry shows sodium 139, potassium 4, chloride 105, carbon dioxide 20, anion gap 17, BUN 36 and creatinine 1.3. EKG shows sinus tachycardia with half a millimeter ST-elevation in II, III, aVF. IMPRESSION: Status post code blue; status post respiratory failure, intubated; ascites, significant uterine cancer with metastasis, status post chemo, status post radiation; status post coded, intubated; anemia; 3+ pedal edema. Not a candidate, we will mechanical shop laborer. At this time, the patient is currently being re-coded again while the patient is in the ICU. Since the patient has a questionable history of pancreatic cancer survival is less and no definite history of the chest pain prior to this half millimeter ST-elevation, we will treat medically, rule out pulmonary embolism, we will start empirically Heparin because the patient is set up for pulmonary embolism. We will get echo to assess left ventricular function, lipid profile, TSH, hemoglobin A1c. We will treat conservatively. We will discuss with the family. Discuss with flute polisher and the resident taking care and the nursing staff taking care. We will follow and will cancel the code STEMI. Currently, the patient is being coded again while finishing the dictation. Jessica Rodriguez MD
--- NOTE | 2018-11-12 02:17 | DS ---
HISTORY OF PRESENT ILLNESS: The patient is a 78-year-old came to emergency room yesterday because of abdominal distention. She wanted to have paracentesis done. The patient was in ER on Saturday. She was told to get admitted, so she could be placed on schedule for Saturday, but she signed against medical advice and she showed up again yesterday for paracentesis, Dr. Kaiser Yung was contacted and she was scheduled to have paracentesis done today. This morning, she became agitated and went into cardiac arrest, rapid response was called, and the patient was resuscitated and multiple rounds of epinephrine was given. She had CPR. She was brought to ICU where she was intubated, but she went into cardiac arrest again and pulses are not found, she was pronounced at 09:37. DISCHARGE DIAGNOSES: 1. Metastatic uterine cancer, status post total hysterectomy followed by radiation and chemotherapy. 2. Noninsulin-dependent diabetes. 3. Malignant . 4. Hypertension. 5. Hyperlipidemia. Braeden Ferguson MD
--- NOTE | 2018-11-12 08:24 | CP.PCM.CON ---
History of Present Illness - History of Present Illness History of Present Illness: MICU Attending Documentaion reflecting events on 11/11/2018 78 f past medical history of HTN, DM, Ovarian Cancer who had a Code blue was called at 7:01AM. Patient underwent 2 rounds of compressions, was given 2 dose of epinephrine, 1 gram of magnesium sulfate and calcium chloride. Patient was intubated during course of code with successful placement verified via chest xray. After ROSC patient was brought to ICU. Past Patient History - Past Social History Smoking Status: Former Smoker - CARDIAC Hx Cardiac Disorders: Yes Hx Hypertension: Yes Hx Pacemaker: No - PULMONARY Hx Respiratory Disorders: Yes Hx Pneumonia: Yes (11-10-18) - NEUROLOGICAL Hx Neurological Disorder: No - HEENT Hx HEENT Problems: No - RENAL Hx Chronic Kidney Disease: No - ENDOCRINE/METABOLIC Hx Endocrine Disorders: Yes Hx Diabetes Mellitus Type 2: Yes - HEMATOLOGICAL/ONCOLOGICAL Hx Blood Disorders: Yes Hx Cancer: Yes (Endometrial cancer,OVARIAN,UTERINE ON CHEMO AND RADIATION) Hx Chemotherapy: Yes - INTEGUMENTARY Hx Dermatological Problems: No - MUSCULOSKELETAL/RHEUMATOLOGICAL Hx Musculoskeletal Disorders: Yes Hx Falls: No - GASTROINTESTINAL Hx Gastrointestinal Disorders: Yes (PARACENTESIS,ASCITES) Hx Gastroesophageal Reflux: Yes - GENITOURINARY/GYNECOLOGICAL Hx Genitourinary Disorders: Yes (HYSTERECTOMY,RIGHT BREAST BX) Other/Comment: ENDOMETRIOSIS - PSYCHIATRIC Hx Psychophysiologic Disorder: No Hx Emotional Abuse: No Hx Physical Abuse: No Hx Substance Use: No - SURGICAL HISTORY Hx Surgeries: Yes (R BREAST BX) Hx Hysterectomy: Yes - ANESTHESIA Hx Anesthesia: Yes Hx Anesthesia Reactions: No Hx Malignant Hyperthermia: No Meds Allergies/Adverse Reactions: Allergies Allergy/AdvReac Type Severity Reaction Status Date / Time No Known Allergies Allergy Verified 11/10/18 14:43 Results - Vital Signs Recent Vital Signs: Last Vital Signs Temp 98.2 F 11/10/18 21:15 Pulse 70 11/11/18 01:23 Resp 20 11/10/18 21:15 BP 97/63 L 11/10/18 21:15 Pulse Ox 97 11/10/18 21:15 - Labs Result Diagrams: 11/11/18 08:35 11/11/18 08:35 Labs: Laboratory Results - last 24 hr 11/11/18 11/11/18 11/11/18 06:00 08:35 08:35 WBC 6.9 RBC 2.37 L Hgb 7.3 L D Hct 22.8 L MCV 96.2 D MCH 30.8 MCHC 32.0 RDW 16.6 H Plt Count 100 L MPV 9.3 Neut % (Auto) 42.0 L Lymph % (Auto) 53.1 H [place] % (Auto) 4.4 Eos % (Auto) 0.1 L Baso % (Auto) 0.4 Lymph # (Auto) 3.7 H [place] # (Auto) 0.3 Eos # (Auto) 0.0 Baso # (Auto) 0.03 Absolute Neuts (auto) 2.89 pCO2 73 H* pO2 20.0 L* HCO3 18.0 L ABG pH 7.00 L* ABG Total CO2 20.2 L ABG O2 Saturation 16.9 L ABG Base Excess -14.3 L ABG Potassium 5.3 H Glucose 64 L Lactate 13.0 H* Mechanical Rate 16 FiO2 100.0 Tidal Volume 400 PEEP 5 Crit Value Called To ishan Mejia Crit Value Called By sukhi Yuan Blood Gas Notified Time 847 Sodium Cancelled 147.0 Potassium Cancelled Chloride Cancelled 109.0 H Carbon Dioxide Cancelled Anion Gap Cancelled BUN Cancelled Creatinine Est GFR ( Amer) Cancelled Est GFR (Non-Af Amer) Cancelled Random Glucose Cancelled Calcium Cancelled Phosphorus Magnesium Total Bilirubin Cancelled AST Cancelled ALT Cancelled Alkaline Phosphatase Cancelled Lactate Dehydrogenase Total Creatine Kinase Troponin I Total Protein Cancelled Albumin Cancelled Globulin Cancelled Albumin/Globulin Ratio Cancelled Arterial Blood Potassium 5.3 H 11/11/18 08:35 WBC RBC Hgb Hct MCV MCH MCHC RDW Plt Count MPV Neut % (Auto) Lymph % (Auto) [place] % (Auto) Eos % (Auto) Baso % (Auto) Lymph # (Auto) [place] # (Auto) Eos # (Auto) Baso # (Auto) Absolute Neuts (auto) pCO2 pO2 HCO3 ABG pH ABG Total CO2 ABG O2 Saturation ABG Base Excess ABG Potassium Glucose Lactate Mechanical Rate FiO2 Tidal Volume PEEP Crit Value Called To Crit Value Called By Blood Gas Notified Time Sodium 150 H Potassium 6.3 H* D Chloride 108 H Carbon Dioxide 28 Anion Gap 20 BUN 34 H Creatinine 1.5 H Est GFR ( Amer) 41 Est GFR (Non-Af Amer) 34 Random Glucose 47 L* D Calcium 7.9 L Phosphorus 9.2 H Magnesium 2.4 H Total Bilirubin 0.5 AST 956 H D ALT 337 H Alkaline Phosphatase 38 D Lactate Dehydrogenase 8103 H Total Creatine Kinase 57 Troponin I 0.44 H* D Total Protein 3.8 L Albumin 1.8 L Globulin 2.0 Albumin/Globulin Ratio 0.9 L Arterial Blood Potassium Assessment & Plan - Assessment and Plan (Free Text) Assessment: 78 year old female with past medical history of HTN, DM, Ovarian Cancer admitted with ascities and SOB had CODE BLUE this morning. I received the patient at the start of my shift in the ICU which was after her initial code blue and ROSC. Patient subsequently coded 4-5 times after while in the ICU over a period of 2 hours. Please refer to code note documentation for details, timing and meds for each code. EKG shows some concern for ST elevations in inferior and anterior septal leads. Firewall Engineer bonderizer for [facility] Dr Rodriguez at bedside, patient was too unstable for cath and EKG was not convicing that this was primarily from ID. I considered PE however on bedside, although RV was enlarger I did not appreciate mcconnel sign or septal bowing which would have been more suggestive. We continued levopphed and eventually added on epi. I was in constant communication with the family in the waiting room including her 2 daughters. I informed them that after continuing to perform CPR several times we have still be unable to stabilize her and that this would likely keep happening without clear benefit at this point. They felt that this was now harmful to her and wanted to preserve her dignity. We agreed that we not perform CPR again and allow her to pass comfortably. Fanny brought into the room several times in between CPR and at the end when we made her DNR. They were at bedside when she passed. Pronounced by housestaff. Dr Hollis made aware. Pastoral care present as well. Technical Designer notified as well by PGY1 King.
== END 2018-11-11 14:09 | DRG 208 ==
LOC: ED 09:47 → ERH 12:37 → 3RSO 15:31 → CCU 11-11 07:49
PROVIDERS: ADMIT Internal Medicine; ATTEND Internal Medicine
PROC: 5A1935Z Respiratory Ventilation, Less than 24 Consecutive Hours (ICD-10-PCS; principal; 2018-11-11)
PROC: 0BH18EZ Insertion of Endotracheal Airway into Trachea, Via Natural or Artificial Opening Endoscopic (ICD-10-PCS; 2018-11-11)
DX: J96.00 Acute respiratory failure, unspecified whether with hypoxia or hypercapnia (principal); C56.9 Malignant neoplasm of unspecified ovary; R18.0 Malignant ascites; Z66 Do not resuscitate; E11.9 Type 2 diabetes mellitus without complications; E87.6 Hypokalemia; E78.5 Hyperlipidemia, unspecified; I10 Essential (primary) hypertension; M17.0 Bilateral primary osteoarthritis of knee; R91.8 Other nonspecific abnormal finding of lung field; F41.9 Anxiety disorder, unspecified; Z79.84 Long term (current) use of oral hypoglycemic drugs; Z87.891 Personal history of nicotine dependence; Z85.42 Personal history of malignant neoplasm of other parts of uterus